=== PATIENT | male | born 1985 | race Caucasian/White ===

== ENCOUNTER 2018-09-01 11:36 | Emergency (ER) | payer OTHER, SELFPAY ==
[2018-09-01 11:38] VITALS: BP 146/78; PULSE 60; RESP 16; TEMP 36.1; O2SAT 99; BMI 32.1
--- NOTE | 2018-09-01 14:41 | ED.VISSUMM ---
- ER Visit Summary Date of Service: 09/01/18 Chief Complaint: Dog bite History of Present Illness: The patient is a 33 M presents to the emergency department dog bite to his lower extremity. Patient was at work. He works at [employer]. 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 He was bit by an on his dog in the back of his leg. He is otherwise healthy. He takes no daily medications. He denies any other symptoms. He is unsure if his tetanus has been within the last 10 years. He denies any pain or difficulty bearing weight. Physical Examination: Exam is relatively unremarkable. Patient does have a partial-thickness bite on the posterior lateral aspect of the left calf. There is no active bleeding. There is no gross contamination. His pulses are normal. Compartments are soft. Test Results: [] Emergency Department Course and Treatment: There is nothing that would benefit from primary closure. The wound is superficial. The patient's tetanus is updated. His wound is cleaned and dressed. He will be started on Augmentin. He will follow-up with [facility] for wound check. He was counseled on concerning symptoms and reasons to return. He will be discharged home. Treatment Plan: [] Disposition: Discharge Impression: Dog bite left leg This note was generated with [employer] dictation software. It may contain incorrect words, spelling, and punctuation that were not noted in review of the chart prior to signing ED Disposition - Plan for ED Patient: Instructions: ED Bite Dog Prescriptions: Amox/Clavulanate Tablet [Augmentin Tablet] 875 mg PO Q12H #14 tab Referrals: [facility] [GROUP OF PHYSICIANS] -
[2018-09-01] MEDS: Diphth,Pertuss(Acell),Tet Vac 0.5 ML Vial IM (14:56)
[2018-09-01] MEDS: Amox/Clavulanate 875 MG Tablet PO (14:56)
== END 2018-09-01 15:06 | disposition home or self-care (01) ==
LOC: ED 14:57
PROVIDERS: Emergency Provider Emergency Medicine; Family Provider Family Medicine; PCP Family Medicine
DX: S80.872A Other superficial bite, left lower leg, initial encounter (principal); W54.0XXA Bitten by dog, initial encounter; Y93.89 Activity, other specified; Y92.009 Unspecified place in unspecified non-institutional (private) residence as the place of occurrence of the external cause; Y99.0 Civilian activity done for income or pay; Z23 Encounter for immunization
CPT/HCPCS: 90471; 90715; 99283

== ENCOUNTER 2022-12-25 08:54 | Emergency (ER) | payer OTHER, SELFPAY ==
[2022-12-25 08:55] VITALS: BP 137/93; PULSE 60; RESP 14; TEMP 36.3; O2SAT 100; BMI 26.6
--- NOTE | 2022-12-25 09:06 | CT_ITS ---
STUDY: CT ABDOMEN AND PELVIS WITHOUT CONTRAST REASON FOR EXAM: Male, 37 years old. abdominal pain RADIATION DOSAGE (If Supplied By Facility): CTDIvol = ( 8.31 ) mGy, DLP = ( 442.18 ) mGycm TECHNIQUE: Transaxial images were obtained from the dome of the diaphragm to the symphysis pubis without oral contrast, and without intravenous contrast. Sagittal and coronal images were reconstructed. Individualized dose optimization techniques were used for this CT. COMPARISON: None. FINDINGS: The visualized lung bases are unremarkable. The visualized portions of the heart are within normal limits. Normal liver. The gallbladder is contracted. Normal spleen. Normal pancreas. Normal bilateral adrenal glands. Normal right kidney. Normal left kidney. Normal visualized stomach. Normal small intestine. Normal colon. The appendix is visualized and appears normal. Normal abdominal aorta. Normal inferior vena cava. Normal retroperitoneum. Normal urinary bladder. Normal abdominal wall. Normal osseous structures. 4 cm oval mass of fat attenuation within the lateral aspect of the left obturator externus muscle consistent with intramuscular lipoma. CT/Abdomen/Pelvis without Cont IMPRESSION: Normal unenhanced CT of the abdomen and pelvis. Electronically Signed: Carter Walters MD at 10:02 EDT ,
--- NOTE | 2022-12-25 09:06 | ED.VIS.GI ---
HPI HPI - GI History of Present Illness Chief Complaint: Abd Pain Detail of Chief Complaint: Abdominal pain Informant: patient Abdominal Pain/Flank Pain Current Severity: 10 Maximum Severity: 10 Narrative Narrative: Patient presents to the emergency department with complaint of abdominal pain as her initially 2 days ago. Patient thought that maybe he was coming down with a bug as he just felt kind of crampy in the lower abdomen and he had some body aches. Today on the way to work he developed more severe pain in the lower abdomen that was like an 8 out of 10 and sharp stabbing pain that would come and go. Patient feels a lot of pressure in his suprapubic region down into his groin. Patient denies any back pain. No history of kidney stones. He denies urinary symptoms. He had no fever. He had nausea but no vomiting. Patient also had 2 episodes of diarrhea this morning. Prior similar symptoms: No PFSH PFSH Home Medications amoxicillin 875 mg-potassium clavulanate 125 mg tablet 875 mg PO Q12H #14 tabs 09/01/18 [Rx Last Taken Unknown] dicyclomine 10 mg capsule 20 mg PO TIDAC #20 CAPSULES 12/25/22 [Rx Last Taken Unknown] Allergy/AdvReac Type Severity Reaction Status Date / Time No Known Allergies Allergy Verified 12/25/22 08:55 Social History Smoking Status: Current every day smoker tobacco type: cigarettes ROS ROS ED Review of Systems ROS Unobtainable: other Constitutional Constitutional ED: Reports lethargy; Denies chills, fever(s), sweats or weight loss Eyes Eyes: Denies blurry vision, change in vision or diplopia ENT ENT ED: Denies rhinorrhea or sore throat Cardiovascular Cardiovascular: Denies chest pain, orthopnea or racing heartbeat Respiratory/Chest Respiratory/Chest: Denies cough, dyspnea, dyspnea on exertion, orthopnea or sputum Gastrointestinal Gastrointestinal: Reports abdominal pain and nausea; Denies diarrhea or vomiting Genitourinary Genitourinary ED: Denies dysuria, hematuria or urinary frequency Musculoskeletal Musculoskeletal: Denies arthralgias, back pain, myalgias or neck pain Integumentary Denies abscess, Abrasions or rash Neurologic Neurologic: Denies headache(s) or weakness Psychiatric Psychiatric: Denies anxiety, depression or suicidal thoughts Endocrine Endocrinology: Denies polydipsia, polyphagia or polyuria Hematologic/Lymphatic Hematologic/Lymphatic: Denies easy bleeding, easy bruising or lymphadenopathy Allergic/Immunologic Allergic/Immunologic ED: Denies mouth swelling, tongue swelling or urticaria EXAM Physical Exam Const Vital Signs: 12/25/22 08:55 Temperature 97.3 F L Temperature Source Temporal Pulse Rate 60 Respiratory Rate 14 Blood Pressure 137/93 H Blood Pressure Mean 107 Pulse Ox 100 Oxygen Delivery Method Room Air Positive well nourished and well developed General Appearance ED: well developed and NAD HEENT Reports TM's clear and moist mucous membranes normocephalic and atraumatic; Negative for trauma or tenderness Tympanic Membrane ED: Yes TM's clear Eyes PERRL and EOMs intact bilaterally General Eye ED: Negative for pale conjunctiva or scleral icterus Neck no lymphadenopathy, supple and no JVD General: Negative for tenderness Chest Wall inspection of chest normal and palpation of chest normal Chest: Negative for tenderness Resp normal respiratory effort and clear to auscultation bilaterally Effort and Inspection: Negative for respiratory distress or pain with movement Auscultation: Negative for rhonchi, wheezes or diminished lung sounds Cardio regular rate, regular rhythm, S1 normal heart sound, S2 normal heart sound and no murmurs Peripheral Pulses: pulses 2+ throughout GI normal to inspection, nondistended, normoactive bowel sounds, soft to palpation, non-distended and no masses GI Narrative: Tenderness to palpation over the suprapubic region. Patient with some tenderness over right lower quadrant. There is no rebound, rigidity, or pedal signs. No mass palpated. Back/Spine no CVA tenderness and no thoracic nor lumbar tenderness Extremity normal to inspection General Extremety ED: Negative for edema General Extremity: Negative for edema Neuro oriented x3, CN's II-XII intact bilaterally, no sensory deficits noted and gait normal Sensorium / Orientation: awake, alert, oriented to person, oriented to place and oriented to time Motor Exam: strength 5/5 throughout and strength abnormal Psych mental status grossly normal Skin no rashes or lesions noted and no wounds MDM MDM MDM Narrative Medical decision making narrative: IV line will be established. Patient does not anything for pain. In the differential would be kidney stone versus UTI versus appendicitis versus diverticulitis or other acute intra-abdominal process. Patient will have blood work and CT scan of the abdomen pelvis. Patient had a CBC with differential that showed a normal white count of 6.1 with a hemoglobin of 15 and platelet count of 219. Chemistries essentially unremarkable. BUN 17 and creatinine 1.18. Urinalysis was normal without blood in the urine or signs of infection. We obtained a CT scan of the abdomen and pelvis which was essentially normal. Normal appendix and no evidence of kidney stones. Patient continues to complain of some pain with movement especially. I did perform a exam and he is a circumcised male with testicles that are nontender and normal cremasteric reflex. There is no evidence of hernia on exam. This point etiology of his pain unclear although he had 2 episodes of diarrhea and suspect possibly gas or cramping related to enteritis. Patient will be given a prescription for Bentyl and advised to follow-up with his primary care physician within next 2 to 3 days. Patient advised to return if worsening pain, fever, vomiting, or condition should worsen anyway. Lab Data Attestation: I reviewed the patient's lab results. Labs: Laboratory Results - last 24 hr 12/25/22 12/25/22 12/25/22 09:08 09:15 09:15 WBC 6.1 RBC 4.91 Hgb 15.1 Hct 45.1 MCV 91.9 MCH 30.8 MCHC 33.5 RDW Std Deviation 41.6 RDW Coeff of Paula 12.3 Plt Count 219 MPV 10.8 Immature Gran % (Auto) 0.200 Neut % (Auto) 62.8 Lymph % (Auto) 20.0 [place] % (Auto) 15.0 H Eos % (Auto) 1.5 Baso % (Auto) 0.5 Absolute Neuts (auto) 3.9 Absolute Lymphs (auto) 1.23 Nucleated RBC % 0 Sodium 139 Potassium 4.0 Chloride 104 Carbon Dioxide 30.0 Anion Gap 5 BUN 17 Creatinine 1.18 Estim Creat Clear Calc 101.59 Est GFR (MDRD) Af Amer 90 Est GFR (MDRD) Non-Af 74 BUN/Creatinine Ratio 14.4 Glucose 110 H Calcium 9.0 Urine Color Yellow Urine Clarity Clear Urine pH 5.0 Ur Specific [place] 1.025 Urine Protein Negative Urine Glucose (UA) Normal Urine Ketones Negative Urine Occult Blood 25 H Urine Nitrite Negative Urine Bilirubin Negative Urine Urobilinogen Normal Ur Leukocyte Esterase Negative Urine RBC 0 SEEN Urine WBC 0 SEEN Ur Squamous Epith Cells 0 SEEN Urine Bacteria 0 SEEN Urine Mucus 0 SEEN Radiography Diagnostic Testing: Clinical Impression(s) from Imaging Studies Abdomen/Pelvis CT 12/25/22 09:06 IMPRESSION: Normal unenhanced CT of the abdomen and pelvis. Electronically Signed: Carter Walters MD at 10:02 EDT , Discharge Plan Triage Chief Complaint: Abd Pain ED Provider: Rebekah Urbina Dx/Rx/DC Orders Clinical Impression: Abdominal pain, Diarrhea Instructions: ED Diarrhea, Unknown Cause, ED Abdominal Pain Unkn Cause Male... Prescriptions: New dicyclomine 10 mg capsule 20 mg PO TIDAC Qty: 20 0RF No Action amoxicillin-pot clavulanate 875 MG tablet 875 mg PO Q12H Qty: 14 0RF Primary Care Provider: Simone Oates Referrals: Akash Girard MD [Med Staff - Active Staff] - 3-5 Days Disposition Disposition: Home, Self Care
[2022-12-25 09:13] LABS: Bacteria 0 SEEN /hpf (None Seen); Mucous, Urine 0 SEEN /hpf (<or=2+); Red Blood Cells-Urine 0 SEEN /hpf (0-5); Squamous Epithelial Cells - UA 0 SEEN /hpf (0-5); White Blood Cells 0 SEEN /hpf (0-5)
[2022-12-25 09:28] LABS: Color, Urine Yellow (Yellow); Glucose, Dipstick Normal (Normal); Ketone-Dipstick Negative (Negative); Leukocyte Esterase-Dipstick Negative /ul (Negative); Nitrite-Dipstick Negative (Negative); Occult Blood-Urine 25 /ul (Negative); Protein-Dipstick Negative (Negative); Specific Gravity, Urine 1.025 (1.002-1.030); Urine Bilirubin Dipstick Negative (Negative); Urine Clarity Clear (Clear); Urine Urobilinogen Normal (Normal)
[2022-12-25 09:29] LABS: Absolute Lymphocyte Count 1.23 X10^3/uL (0.83-4.51); Absolute Neutrophil Count 3.9 X10^3/uL (2.0-7.7); Basophil# 0.03 X10^3/uL; Basophil% 0.5 % (0-1); Eosinophil# 0.09 X10^3/uL; Eosinophils% 1.5 % (0-5); Hematocrit 45.1 % (40-54); Hemoglobin 15.1 g/dL (13.0-16.5); Lymphocyte # 1.23 X10^3/ul (0.83-4.51); Mean Corp Hgb Conc 33.5 g/dL (32-36); Mean Corpuscular Hgb 30.8 pg (27.0-32.0); Mean Corpuscular Volume 91.9 fL (80-94); Mean Platelet Vol. 10.8 fl (6.2-12.0); Monocyte# 0.92 X10^3/uL; NRBC Flagged by Analyzer 0 % (0-5); Neutrophil # 3.86 X10^3/uL (2.7-7.7); Neutrophil % 62.8 % (47-70); Platelet Count 219 K/mm3 (150-450); RBC Distribution Width CV 12.3 % (11.6-14.6); RBC Distribution Width SD 41.6 fl (35.1-43.9); Red Blood Count 4.91 M/mm3 (4.6-6.2); White Blood Count 6.1 K/mm3 (4.4-11.0)
[2022-12-25 09:35] LABS: Anion Gap 5 (5-15); BUN 17 mg/dL (7-18); BUN/Creat Ratio 14.4 RATIO (10-20); Chloride 104 mmol/L (98-107); Creatinine, Serum 1.18 mg/dL (0.70-1.30); EST Glomerular Filtration Rate 74 mL/min (>60); Est Glom Filt Rate - Afr Amer 90 mL/min (>60); Estimated Creatinine Clearance 101.59 ml/min; Glucose 110 mg/dL (74-106); Sodium Level 139 mmol/L (136-145)
[2022-12-25] MEDS: Dicyclomine 10 MG Capsule 20 MG PO (10:29)
== END 2022-12-25 10:29 | disposition home or self-care (01) ==
PROVIDERS: Emergency Provider Emergency Medicine; PCP Family Medicine; Visit Provider Emergency Medicine
DX: R10.30 Lower abdominal pain, unspecified (principal); R19.7 Diarrhea, unspecified; R11.0 Nausea; F17.210 Nicotine dependence, cigarettes, uncomplicated
CPT/HCPCS: 74176; 80048; 81001; 85025; 99282

== ENCOUNTER → 2023-03-04 | Outpatient (CLI) | payer OTHER, SELFPAY ==
[2023-03-04 10:26] LABS: Absolute Lymphocyte Count 1.76 X10^3/uL (0.83-4.51); Absolute Neutrophil Count 3.3 X10^3/uL (2.0-7.7); Basophil# 0.05 X10^3/uL; Basophil% 0.8 % (0-1); Eosinophils% 1.7 % (0-5); Hematocrit 47.4 % (40-54); Hemoglobin 15.3 g/dL (13.0-16.5); Lymphocyte # 1.76 X10^3/ul (0.83-4.51); Lymphocyte % 29.7 % (19-41); Mean Corp Hgb Conc 32.3 g/dL (32-36); Mean Corpuscular Volume 92.9 fL (80-94); Mean Platelet Vol. 11.5 fl (6.2-12.0); Monocyte# 0.69 X10^3/uL; Monocyte% 11.7 % (0-10); NRBC Flagged by Analyzer 0 % (0-5); Neutrophil # 3.31 X10^3/uL (2.7-7.7); Neutrophil % 55.9 % (47-70); Platelet Count 260 K/mm3 (150-450); RBC Distribution Width CV 12.2 % (11.6-14.6); RBC Distribution Width SD 42.2 fl (35.1-43.9); White Blood Count 5.9 K/mm3 (4.4-11.0)
[2023-03-04 10:58] LABS: ALB/GLOB Ratio 1.1 RATIO (0.9-2.4); AST(SGOT) 24 U/L (15-37); Alanine Aminotransfer ALT/SGPT 30 U/L (16-61); Albumin, Serum 4.1 g/dL (3.2-5.0); Alkaline Phosphatase 70 U/L (45-117); Anion Gap 3 (5-15); BUN 18 mg/dL (7-18); BUN/Creat Ratio 14.8 RATIO (10-20); Calcium,Total 9.2 mg/dL (8.5-10.1); Chloride 105 mmol/L (98-107); Cholesterol 154 mg/dL (200); Creatinine, Serum 1.22 mg/dL (0.70-1.30); EST Glomerular Filtration Rate 71 mL/min (>60); Est Glom Filt Rate - Afr Amer 86 mL/min (>60); Globulin 3.7 g/dL (2.2-4.2); Glucose 95 mg/dL (74-106); High Density Lipoprotein 73 mg/dL; Potassium 4.1 mmol/L (3.5-5.1); Protein, Total 7.8 g/dL (6.4-8.2); Sodium Level 138 mmol/L (136-145); Triglycerides 70 mg/dL; Very Low Density Lipoprotein 14 mg/dL (5-40)
== END | disposition home or self-care (01) ==
LOC: LAB 09:36
PROVIDERS: PCP Family Medicine; Referring Provider Family Medicine; Visit Provider Family Medicine
DX: Z00.00 Encounter for general adult medical examination without abnormal findings (principal)
CPT/HCPCS: 36415; 80053; 80061; 85025

== ENCOUNTER → 2024-10-31 | Outpatient (CLI) | payer OTHER, SELFPAY ==
[2024-10-31 18:45] LABS: Free T3 3.6 pg/mL (2.18-3.98)
== END | disposition home or self-care (01) ==
LOC: MTLAB 16:41
PROVIDERS: PCP Family Medicine; Referring Provider Family Medicine; Visit Provider Family Medicine
DX: E03.9 Hypothyroidism, unspecified (principal); E29.1 Testicular hypofunction; R53.83 Other fatigue
CPT/HCPCS: 36415; 84402; 84403; 84439; 84443; 84481